=== PATIENT | male | born 1945 ===

== ENCOUNTER 2019-05-26 09:09 | Day surgery (SDC) | payer OTHER ==
[~2019-05-26 09:09] MED LIST: CYMBALTA30 MG PO; LYRICA50 MG PO; VASOTEC10 MG PO; ZOCOR20 MG PO
== END 2019-05-26 18:35 | disposition home or self-care (01) ==
LOC: CIR.AMB 09:09
DX: M99.63 Osseous and subluxation stenosis of intervertebral foramina of lumbar region (principal)